=== PATIENT | female | born 1990 | race African-American/Black ===

== ENCOUNTER 2021-07-13 10:57 | Emergency (ER) | payer OTHER ==
[~2021-07-13] VITALS: Ht 170.2 cm; Wt 117.9 kg
[2021-07-13] MEDS ORDERED: IV NORMAL SALINE 1,000ML 1,000 ML IV ONE (11:00)
--- NOTE | 2021-07-13 11:09 | EKG ---
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
[2021-07-13 11:30] LABS: BASO % 1 % (0-3); EOS # 0.2 x10^3/uL (0.0-0.7); EOS % 4 % (0-3); HEMATOCRIT 39.4 % (36.0-47.0); HEMOGLOBIN 12.7 g/dL (12.0-15.5); LYMPH # 2.3 x10^3/uL (1.0-4.8); LYMPH % 39 % (24-48); MEAN CORPUSCULAR HEMOGLOBIN 26 pg (25-35); MEAN CORPUSCULAR HGB CONC 32 g/dL (31-37); MEAN CORPUSCULAR VOLUME 82 fL (79-100); MONO # 0.7 x10^3/uL (0.0-1.1); MONO % 11 % (0-9); NEUT # 2.8 x10^3uL (1.8-7.7); NEUT % 46 % (31-73); PLATELET COUNT 349 x10^3/uL (140-400); RED BLOOD COUNT 4.81 x10^6/uL (3.50-5.40); RED CELL DISTRIBUTION WIDTH 15.6 % (11.5-14.5); WHITE BLOOD COUNT 6.1 x10^3/uL (4.0-11.0)
[2021-07-13] MEDS ORDERED: ONDANSETRON PF 4 MG/2 ML VIAL. IVP ONE (11:30)
[2021-07-13 11:33] LABS: CALCIUM 9.7 mg/dL (8.5-10.1); CREATININE 0.8 mg/dL (0.6-1.0); GFR 84.2; POTASSIUM 3.5 mmol/L (3.5-5.1)
--- NOTE | 2021-07-13 11:35 | PHYS DOC ---
General Adult EDM: Chief Complaint: SUICIDAL IDEATION HPI: HPI: 31-year-old female presents via EMS with suicide attempt by overdose. The patient was reported to take 1200 mg of Seroquel and 1800 mg of lithium. These medications were taken around 10:30 AM. She tells me that she drank alcohol sometime in the early a.m. She was attempting to kill herself by taking these medications. She has some generalized abdominal pain, nausea, and vomiting. She has no other medical complaints at this time. (KOBE MILLER DO) Review of Systems: Review of Systems: Constitutional: Denies fever or chills Eyes: Denies change in visual acuity HENT: Denies nasal congestion or sore throat Respiratory: Denies cough or shortness of breath Cardiovascular: Denies chest pain or edema GI: Generalized abdominal pain, nausea, vomiting. : Denies dysuria Musculoskeletal: Denies back pain or joint pain Integument: Denies rash Neurologic: Denies headache, focal weakness or sensory changes Endocrine: Denies polyuria or polydipsia Lymphatic: Denies swollen glands Psychiatric: Depression, suicide attempt (KOBE MILLER DO) Current Medications: Current Meds: Current Medications Medications (Trade) Dose Ordered Sig/Cynthia Start Time Stop Time Status Last Admin Dose Admin Ondansetron HCl (Zofran) 4 mg 1X ONCE 07/13/21 11:30 07/13/21 11:31 UNV Sodium Chloride 1,000 ml @ 1,000 mls/hr 1X ONCE 07/13/21 11:00 07/13/21 11:59 UNV (KOBE MILLER DO) Allergies: Allergies: Allergies Coded Allergies Type Severity Reaction Last Updated Verified No Known Drug Allergies 07/13/21 No (KOBE MILLER DO) Physical Exam: PE: Constitutional: Well developed, well nourished, morbidly obese, no acute distress, non-toxic appearance. [] HENT: Normocephalic, atraumatic, bilateral external ears normal, oropharynx moist, no oral exudates, nose normal. [] Eyes: PERRLA, EOMI, conjunctiva normal, no discharge. [] Neck: Normal range of motion, no tenderness, supple, no stridor. [] Cardiovascular: Heart rate regular rhythm, no murmur [] Lungs & Thorax: Bilateral breath sounds clear to auscultation [] Abdomen: Bowel sounds normal, soft, no tenderness, no masses, no pulsatile masses. [] Skin: Warm, dry, no erythema, no rash. [] Back: No tenderness, no CVA tenderness. [] Extremities: No tenderness, no cyanosis, no clubbing, ROM intact, no edema. [] Neurologic: Alert and oriented X 3, normal motor function, normal sensory function, no focal deficits noted. [] Psychologic: Affect flat, judgement normal, mood depressed. [] (KOBE MILLER DO) Current Patient Data: Vital Signs: Vital Signs Date Time Temp Pulse Resp B/P (MAP) Pulse Ox O2 Delivery O2 Flow Rate FiO2 07/13/21 10:57 98.8 112 20 150/94 (112) 99 Room Air (KOBE MILLER DO) EKG: EKG: [] (KOBE MILLER DO) Radiology/Procedures: Radiology/Procedures: [] (KOBE MILLER DO) Heart Score: C/O Chest Pain: N/A Risk Factors: Risk Factors: DM, Current or recent (<one month) smoker, HTN, HLP, family history of CAD, obesity. Risk Scores: Score 0 - 3: 2.5% MACE over next 6 weeks - Discharge Home Score 4 - 6: 20.3% MACE over next 6 weeks - Admit for Clinical Observation Score 7 - 10: 72.7% MACE over next 6 weeks - Early Invasive Strategies (KOBE MILLER DO) Course & Med Decision Making: Course & Med Decision Making Pertinent Labs and Imaging studies reviewed. (See chart for details) The patient had 2 episodes of vomiting in the emergency room upon arrival. No easily identifiable fragments. The patient's normal dose of lithium is 600 or 800 once daily. The patient's labs are unremarkable. Her lithium level is 1.0. Patient's urine drug screen is negative. She is medically stable for behavior health evaluation. That is pending at this time. I have signed the patient out to the director risk at 1800. [] (KOBE MILLER DO) Course & Med Decision Making Patient care handed off to me at checkout pending placement. Patient accepted to [facility] however, secondary to inclement weather conditions, EMS transport wanted to wait until morning for transport. Patient remained stable all night, slept, took p.o. without issue and agreed to wait until morning for transport. (JOSELIN CASTLE MD) Dragon Disclaimer: Dragon Disclaimer: This electronic medical record was generated, in whole or in part, using a voice recognition dictation system. (KOBE MILLER DO) Departure Departure: Impression: Primary Impression: Suicide attempt Referrals: PCP,UNKNOWN (PCP) KOBE MILLER DO Jul 13, 2021 11:35 JOSELIN CASTLE MD Jul 14, 2021 05:54
[2021-07-13 11:39] LABS: ALBUMIN 3.6 g/dL (3.4-5.0); ALBUMIN/GLOBULIN RATIO 0.9 (1.0-1.7); TOTAL BILIRUBIN 0.3 mg/dL (0.2-1.0); TOTAL PROTEIN 7.4 g/dL (6.4-8.2)
[2021-07-13 11:40] LABS: ACETAMIN < 2 mcg/mL (10-30); SALIC < 2.8 mg/dL (2.8-20.0)
[2021-07-13 14:59] LABS: BARBITURATES NEG (NEG); BENZODIAZEPINES NEG (NEG); CANNABINOIDS NEG (NEG); COCAINE NEG (NEG); METHADONE NEG (NEG); OPIATES NEG (NEG); PHENCYCLIDINE NEG (NEG)
[2021-07-13 15:02] LABS: AMPHETAMINE/METHAMPHETAMINE NEG (NEG)
[2021-07-13 15:14] LABS: CLARITY,URINE CLEAR; COLOR,URINE YELLOW; GLUCOSE,URINE NEG (NEG)
[2021-07-13 15:15] LABS: BACTERIA,URINE FEW /HPF (0-FEW); NITRITE,URINE NEG (NEG); SQUAMOUS EPITHELIAL CELL,UR MOD /LPF; UROBILINOGEN,URINE 0.2 mg/dL (0.2 mg/dL)
--- NOTE | 2021-07-14 04:17 | EKG ---
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
--- NOTE | 2021-07-14 05:01 | EKG ---
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
[2021-07-14 06:17] VITALS: BP 138/89
== END 2021-07-14 07:57 ==
LOC: ER 10:57
DX: T43.592A Poisoning by other antipsychotics and neuroleptics, intentional self-harm, initial encounter (principal); T56.892A Toxic effect of other metals, intentional self-harm, initial encounter; R10.84 Generalized abdominal pain; R11.2 Nausea with vomiting, unspecified; Z20.822 Contact with and (suspected) exposure to COVID-19; Y92.89 Other specified places as the place of occurrence of the external cause
CPT/HCPCS: 36415; 80053; 80178; 80307; 80329; 81001; 83735; 84443; 85025; 87086; 87426; 93005; 96361; 96374; 99285; J2405; J7030; U0003; G0480